=== PATIENT | female | born 1995 | race Asian ===

== ENCOUNTER 2022-07-06 08:46 | Emergency (ER) | payer OTHER ==
[~2022-07-06] VITALS: Ht 162.6 cm; Wt 64.4 kg
[2022-07-06 08:50] VITALS: BP 120/73; TEMP 98
== END 2022-07-06 10:48 | disposition home or self-care (01) ==
LOC: ED 08:46
DX: Z53.21 Procedure and treatment not carried out due to patient leaving prior to being seen by health care provider (principal)

== ENCOUNTER 2022-08-26 08:34 | Emergency (ER) | payer OTHER ==
[~2022-08-26] VITALS: Ht 162.6 cm; Wt 67.1 kg
[2022-08-26 12:08] VITALS: BP 117/72; TEMP 100.3
== END 2022-08-26 12:09 | disposition home or self-care (01) ==
LOC: ED 08:34
DX: J02.0 Streptococcal pharyngitis (principal)
CPT/HCPCS: 36415; 87651; 96365; 96366; 99284; J0456; J0696

== ENCOUNTER 2022-09-20 11:05 | Emergency (ER) | payer OTHER ==
[~2022-09-20] VITALS: Ht 162.6 cm; Wt 63.5 kg
[2022-09-20 11:25] VITALS: BP 108/69; TEMP 98
== END 2022-09-20 12:54 | disposition home or self-care (01) ==
LOC: ED 11:05
DX: B34.9 Viral infection, unspecified (principal)
CPT/HCPCS: 81002; 81025; 99283

== ENCOUNTER 2022-12-13 16:50 | Emergency (ER) | payer OTHER ==
[~2022-12-13] VITALS: Ht 162.6 cm; Wt 71.2 kg
[2022-12-13 18:03] VITALS: BP 114/75; TEMP 98.1
== END 2022-12-13 18:06 | disposition home or self-care (01) ==
LOC: ED 16:50
DX: J02.8 Acute pharyngitis due to other specified organisms (principal)
CPT/HCPCS: 87651; 99282

== ENCOUNTER 2022-12-15 07:59 | Emergency (ER) | payer OTHER ==
[~2022-12-15] VITALS: Ht 162.6 cm; Wt 71.2 kg
[2022-12-15 08:00] VITALS: BP 119/71; TEMP 98.3
== END 2022-12-15 09:30 | disposition home or self-care (01) ==
LOC: ED 07:59
DX: Z11.3 Encounter for screening for infections with a predominantly sexual mode of transmission (principal)
CPT/HCPCS: 81000; 81025; 87490; 87590; 96372; 99283; J0696

== ENCOUNTER 2022-12-16 07:31 | Emergency (ER) | payer OTHER ==
[~2022-12-16] VITALS: Ht 154.9 cm; Wt 75.8 kg
[2022-12-16 07:35] VITALS: BP 119/65; TEMP 97.3
[2022-12-16 08:12] LABS: PLATELET COUNT 272 K/uL (152-353)
== END 2022-12-16 08:50 | disposition still patient (30) ==
LOC: ED 07:31
PROVIDERS: Emergency Medicine
DX: R51.9 Headache, unspecified (principal); R53.1 Weakness
CPT/HCPCS: 80048; 85027; 99283

== ENCOUNTER 2023-01-31 00:05 | Emergency (ER) | payer OTHER ==
[~2023-01-31] VITALS: Ht 154.9 cm; Wt 61.2 kg
[2023-01-31 00:15] VITALS: BP 122/74; TEMP 97.6
== END 2023-01-31 01:45 | disposition home or self-care (01) ==
LOC: ED 00:05
DX: J20.9 Acute bronchitis, unspecified (principal)
CPT/HCPCS: 81025; 87502; 87635; 99282; U0003

== ENCOUNTER 2023-02-27 00:11 | Emergency (ER) | payer OTHER ==
[~2023-02-27] VITALS: Ht 154.9 cm; Wt 74.8 kg
[2023-02-27 00:20] VITALS: TEMP 98.7
[2023-02-27 02:08] VITALS: BP 118/74
== END 2023-02-27 02:08 | disposition home or self-care (01) ==
LOC: ED 00:11
DX: R00.2 Palpitations (principal); F41.9 Anxiety disorder, unspecified
CPT/HCPCS: 36415; 84484; 93005; 99283

== ENCOUNTER 2023-04-06 17:13 | Emergency (ER) | payer OTHER ==
[~2023-04-06] VITALS: Ht 154.9 cm; Wt 73.5 kg
[2023-04-06 17:55] VITALS: BP 133/71; TEMP 98.2
== END 2023-04-06 19:16 | disposition home or self-care (01) ==
LOC: ED 17:13
DX: G43.909 Migraine, unspecified, not intractable, without status migrainosus (principal)
CPT/HCPCS: 99282

== ENCOUNTER 2023-04-09 23:12 | Emergency (ER) | payer OTHER ==
[~2023-04-09] VITALS: Ht 154.9 cm; Wt 73.5 kg
[2023-04-09 23:35] VITALS: BP 121/58; TEMP 98.6
[2023-04-10 01:34] LABS: PLATELET COUNT 257 K/uL (152-353)
[2023-04-10 01:52] LABS: POTASSIUM 3.4 mmol/L (3.6-5.2)
== END 2023-04-10 02:35 | disposition home or self-care (01) ==
LOC: ED 23:12
PROVIDERS: Family Medicine
DX: G43.909 Migraine, unspecified, not intractable, without status migrainosus (principal); F41.9 Anxiety disorder, unspecified
CPT/HCPCS: 36415; 80053; 81002; 81025; 85008; 85027; 96374; 96375; 99284